=== PATIENT | male | born 1930 | race Caucasian/White ===

== ENCOUNTER → 2017-01-26 | Outpatient (CLI) | payer MEDICARE, OTHER ==
[~2017-01-26] MED LIST: AMLO5TAB2 PO; BETH25TA PO; CHOL200018 PO; CLOP75TA28 PO; CLPD75T PO; CYCL10TA45 PO; ECHI350C PO; ENAL20TA PO; HYDR-3714 PO; HYDR118S10 PO; MINERALS PO; MULT-963 PO; PHEN200T27 PO; POTA99TA13 PO; POTASSIUM GLUCONATE PO; SULF1TAB34 PO; TMSL.4C PO; VITA1TAB22 PO; VITAMIN C PO; [UNRECOGNIZED DRUG - OTHER] PO
--- NOTE | 2017-01-26 13:40 | Diagnostic Imaging Report ---
Examination: Segmental lower extremity pressure assessment and ankle brachial index measurement. Post volume recording waveforms are also obtained in the lower extremities. Indication: Peripheral arterial disease Findings: Systolic pressure in the right Upper extremity is 158, and the left Upper extremity is 155 mmHg. RIGHT Lower extremity systolic pressures are: In the mid thigh 131 , in the upper calf 88, and at the ankle 112 DP, and 116 PT. . LEFT Lower extremity systolic pressures are: In the mid thigh 147 , in the upper calf 130, and at the ankle 79 DP, and 103 PT. . JACOB on the right is 0.7, and on the left is 0.65. Pulse volume recordings waveforms demonstrate significant dampening , more on the right side. Impression: Evidence of a multifocal moderate peripheral vascular disease worse on the left side. Dictated by: Dictated on workstation # [id number]
--- NOTE | 2017-01-26 18:50 | Diagnostic Imaging Report ---
EXAMINATION: Ultrasound of the aorta. INDICATION: Peripheral arterial disease. Abdominal aortic aneurysm. FINDINGS: The proximal and mid abdominal aorta are obscured by bowel gas. The distal abdominal aorta caliber is 4.2 cm. There is an endograft seen with flow demonstrated within it. The right common iliac artery is 1.5 cm and the left is also 1.5 cm. IMPRESSION: There is a distal abdominal aortic aneurysm measuring 4.2 cm in caliber. Dictated by: Dictated on workstation # [id number]
== END ==
LOC: RAD 08:00
PROVIDERS: ATTEND Internal Medicine Interventional Cardiology
DX: I73.9 Peripheral vascular disease, unspecified (principal); I71.4 Abdominal aortic aneurysm, without rupture; I10 Essential (primary) hypertension
CPT/HCPCS: 76775; 93923

== ENCOUNTER → 2017-02-08 | Outpatient (CLI) | payer MEDICARE, OTHER ==
[~2017-02-08] MED LIST changes: +CATHETER FLUSH 10 ML SYR IV PRN; +IOHEXOL 350 MG/ML 150 ML (OMNIPAQUE 350) VIAL IV ONE; +NS 100 ML (IVPB) BAG IV ONE
[2017-02-08 10:47] LABS: BLOOD UREA NITROGEN 16 MG/DL (7-18); BUN/CREATININE RATIO 16; CREATININE SERUM 1.03 MG/DL (0.60-1.30); GFR ESTIMATED > 60
--- NOTE | 2017-02-08 13:04 | Diagnostic Imaging Report ---
EXAMINATION: CT angiogram of the abdomen and pelvis with bilateral lower extremity runoff. TECHNIQUE: Axial and coronal MIP reconstruction images are performed. 150 mL of Omnipaque 350 is administered intravenously. INDICATION: Peripheral vascular disease. Abdominal aortic aneurysm. FINDINGS: Soft tissue findings demonstrate no significant abnormality in the lung bases. The liver, the gallbladder, the spleen, the adrenals, and the pancreas appear grossly unremarkable. The prostate is enlarged with lobulation of the urinary bladder and mild wall thickening probably related to BPH. There is extensive diverticulosis. No diverticulitis. There is an infrarenal abdominal aortic aneurysm with an endograft repair seen in place. There is significant atherosclerotic calcified plaque obscuring the lumen of the proximal right renal artery. The segments distal to that in the right renal artery are opacified. Underlying proximal right renal artery stenosis could be present. The aneurysm maximum diameter is 4.6 cm, minimally enlarged compared to 4.4 cm measurement of 04/23/2015 exam. Hyperdensity seen within the aneurysm appears to represent calcifications based on comparison with the unenhanced phase with no definite evidence of endoleak seen. The lumen of the graft is patent with patent iliac limbs that have landing zone in the distal common iliac arteries bilaterally. The external iliac artery is patent on both sides. Prominent calcified plaque in the internal iliac artery is seen on both sides with mild to moderate focal stenosis in the proximal left internal iliac artery seen. RIGHT LOWER EXTREMITY RUNOFF: There is moderate calcified plaque and stenosis seen in the distal right [employer]. The profunda femoris is patent. The SFA demonstrates mild disease proximally and moderate to severe disease along the femoropopliteal junction. The multifocal moderate to severe areas of stenosis are seen in the popliteal artery which is completely occluded distally with reconstitution at the proximal anterior tibial artery that is occluded proximally. The posterior tibial artery demonstrate diffuse disease and no contrast enhancement in its distal aspect is seen, either related to occlusion or slow flow. The peroneal artery is occluded proximally. LEFT LOWER EXTREMITY RUNOFF: The [employer] demonstrates mild disease. Mild disease in the origin of the profunda is seen which is patent otherwise. The SFA demonstrates multifocal disease of moderate degree in the proximal and mid segments and foci of moderate to severe stenosis distally. The left popliteal artery demonstrates poor enhancement with poor enhancement of the anterior tibial artery which appears to be occluded proximally. There is also poor enhancement of the posterior tibial and peroneal arteries which appear to have proximal severe disease with possible occlusions or areas of lack of enhancement due to poor flow seen. IMPRESSION: 1. There is very minimal enlargement of the infrarenal AAA measuring 4.6 cm in caliber with no endoleak evident. 2. There is multifocal disease in the femoropopliteal segments bilaterally with occlusion of the distal right popliteal artery and severe disease around the proximal and distal left popliteal artery. 3. Severe infrapopliteal disease bilaterally. Dictated by: Dictated on workstation # [id number]
== END ==
LOC: RAD 10:03
PROVIDERS: ATTEND Internal Medicine Interventional Cardiology
DX: I71.4 Abdominal aortic aneurysm, without rupture (principal); I77.1 Stricture of artery
CPT/HCPCS: 36415; 75635; 82565; 84520